=== PATIENT | female | born 1985 | race Caucasian/White ===

== ENCOUNTER 2023-11-30 12:19 | Emergency (ER) | payer OTHER, SELFPAY ==
[2023-11-30 12:31] VITALS: BP 108/81
[2023-11-30 14:00] LABS: COVID-19 Antigen Negative (Negative)
--- NOTE | 2023-11-30 14:03 | ED.GENMED ---
History of Present Illness
General
Chief Complaint: Eye Problems
Source: patient and spouse
Time Seen by Provider: 11/30/23 13:20
Travel History
Have you had any contact with someone who has COVID-19?: No
Do you have any symptoms of coronavirus? Fever > 100 degrees, chills, cough, shortness of breath, sore throat, loss of taste or smell, muscle aches, or headache?: No
History of Present Illness
History of Present Illness:
38-year-old female who presents with swelling and crusting of her left eye. Patient thought maybe it was related to allergies because she had a little bit of scratchy throat as well. Patient states today she had yellow and green stuff coming from
her left eye and now her eye is crusted shut. She does report swelling of her left upper lid. No kenneth fevers. No relief really with Zyrtec. No trouble breathing. No lip swelling. She denies itching of the eye
Past History
Past History
ED Past Medical History: None
Phy Exam
Physical Exam
Physical Exam:
CONSTITUTIONAL Patient alert and oriented to person, place and time. Well-appearing. Vital signs reviewed.
HEAD atraumatic, normocephalic.
EYES left upper lid is swollen with mild redness, crusting some exudative drainage. Sclera is injected on the left. Right eye is unaffected, Pupils equally round and reactive to light, Extraocular muscles intact. Fluorescein exam was performed
with no uptake. No abrasions or ulcers
ENT very mild posterior redness, no exudates
NECK normal range of motion, Trachea midline, no jugular venous distention.
ABDOMEN No distention.
BACK normal inspection, no obvious deformities
UPPER EXTREMITY range of motion normal, Motor strength normal, no cyanosis, no edema.
LOWER EXTREMITY range of motion normal, Motor strength normal, no cyanosis, no edema.
NEURO Speech normal, No focal motor deficits, Mastic coma scale 15, Memory normal, Cranial Nerves intact to screening exam.
SKIN skin warm, dry, and normal in color.
PSYCHIATRIC patient oriented to person place and time, Normal affect.
Course
Orders/Labs/Results
Orders:
Orders
11/30/23 13:41
COVID-19 Antigen Urgent
Source: Nasal Swab
Influenza A+B Rapid Molecular Urgent
MICHAEL Source: Nasal Swab
Specimen Description:
11/30/23 14:09
Doxycycline [Vibramycin] 100 mg PO NOW STA
Erythromycin (Ilotycin) [Erythromycin 0.5% Ophthalmic Ointment] See Dose Instructions OPHTH NOW STA
11/30/23 15:48
Fluorescein Sodium [Ful-Fanta] 1 mg .ROUTE .STK-MED ONE
Tetracaine HCl [Tetracaine 0.5% Ophthalmic Solution] 1 drop .ROUTE .STK-MED ONE
Vital Signs
Initial and Last Documented VS:
Initial Vital Signs
Temp Pulse Resp BP Pulse Ox
98.8 F 91 16 108/81 98
11/30/23 12:31 11/30/23 12:31 11/30/23 12:31 11/30/23 12:31 11/30/23 12:31
Last Documented Vital Signs
Temp Pulse Resp BP Pulse Ox
98.8 F 91 16 108/81 98
11/30/23 12:31 11/30/23 12:31 11/30/23 12:31 11/30/23 12:31 11/30/23 12:46
MDM/Problems Addressed
MDM/Problems Addressed:
Blepharitis, conjunctivitis
*Pulse Oximetry
Patient hypoxic: no
*Critical Care Note
Total Time (30-74mins, 75-104mins- exclusive of procedures): Not Applicable
Data Reviewed
Source: patient and spouse
Further Testing Considered But Not Given:
Consider orbital CT but do not suspect orbital cellulitis
Patient Management
Escalation/DeEscalation of care consider admission/obs:
Blepharitis/conjunctivitis. Suspect viral source Palladium lid swelling cover with oral antibiotics to prevent progression of preseptal cellulitis. Otherwise appears well. No corneal abrasion. Does not wear contacts. Recommended warm compresses
and gentle cleansing of the lids.
ED Attending Note
-
Portions of this chart may have been created with voice recognition software.� Occasional wrong word or��sound alike� substitutions may have occurred due to the inherent limitations of voice recognition software.
Discharge Plan
Departure
Patient Disposition: Home (Routine Discharge)
Date of Disposition: 11/30/23
Time of Disposition: 15:20
Patient with high blood pressure during this ER visit?: No
Discharge Problem:
Blepharitis, Preseptal cellulitis
Instructions: Conjunctivitis (Pinkeye) (DC), Cellulitis Around the Eye (DC)
Prescriptions:
New
doxycycline monohydrate 100 mg capsule
100 mg PO BID Qty: 14 0RF
erythromycin 5 mg/gram (0.5 %) ointment
0.5 inch ophthalmic (eye) QID 7 Days Qty: 3.5 0RF
No Action
vit-iron fum-folic ac 1 EACH tablet
1 ea PO DAILY
ibuprofen 600 MG tablet
600 mg PO Q4HPRN PRN (Reason: moderate pain/cramps) 0RF
Referrals:
Liliana Holcomb PA-C [Family Provider] -
Activity Restrictions/Additional Instructions:
Please apply warm compresses to your eye. You can wash your lids with a gentle wipe of warm water and soap. Please use antibiotic 4 times a day for 1 week. Return for vision changes, headache, eye pain, pain with movement of the eye, fevers or
any other concerns.
Interventions
Interventions:
*Risk Screen - Suicide Last Done: 11/30/23 15:44
*General Assessment Last Done: 11/30/23 15:44
*Neglect/Abuse Screening Last Done: 11/30/23 15:44
*ED COVID-19 Vaccine History Last Done: 11/30/23 12:31
*Nursing Disposition Last Done: 11/30/23 15:44
ED- Cardiac Assessment Last Done: 11/30/23 12:46
ED- Pulmonary Assessment Last Done: 11/30/23 12:46
ED-Skin Assessment Last Done: 11/30/23 12:46
Discharge Date and Time
Discharge Date/Time: 11/30/23 15:44
[2023-11-30] MEDS: VIBRAMYCIN 100 MG PO (14:32)
[2023-11-30] MEDS: ERYTHROMYCIN 0.5% OPHTHALMIC OINTMENT 1 APPLIC OPHTH (14:32)
== END 2023-11-30 15:44 | disposition home or self-care (01) ==
LOC: EMR 12:19
PROVIDERS: EMERGENCY PHYSICIAN Emergency Medicine; FAMILY PHYSICIAN Family Medicine
DX: H01.006 Unspecified blepharitis left eye, unspecified eyelid (principal); L03.213 Periorbital cellulitis; Z11.52 Encounter for screening for COVID-19
CPT/HCPCS: 99283; 87502; 87811

== ENCOUNTER 2023-12-22 05:27 | Emergency (ER) | payer OTHER, SELFPAY ==
[2023-12-22 05:30] VITALS: BP 93/58
--- NOTE | 2023-12-22 06:23 | ED.GENMED ---
History of Present Illness
General
Chief Complaint: Allergic Reaction
Source: patient and spouse
Exam Limitations: none
Time Seen by Provider: 12/22/23 06:22
Travel History
Have you had any contact with someone who has COVID-19?: No
Do you have any symptoms of coronavirus? Fever > 100 degrees, chills, cough, shortness of breath, sore throat, loss of taste or smell, muscle aches, or headache?: No
History of Present Illness
History of Present Illness:
38-year-old female woke in the middle of the night at about 3 AM with tongue swelling general hives and itching itchy gums. No chest pain or shortness of breath. Was given 2 Benadryl at home although she did vomit afterwards. Moderate improvement
with hives resolving most itching resolving except for her tongue still feels swollen and she is nauseous. No unusual food ingestion or exposure. No history of same
Past History
Past History
ED Past Medical History: None
Review of Systems
Review of Systems
All Other Systems: Not applicable
Constitutional: Denies fever
Cardiac: Denies chest pain
Phy Exam
Physical Exam
Physical Exam:
GENERAL: Alert and oriented in no apparent distress
EYE: Orbits normal.
NECK: Supple, no swelling
ENT: Pharynx without erythema. Questionable minimal tongue swelling but not appreciable. No drooling or stridor speech normal
CARDIAC: Regular rate and rhythm without any obvious murmurs.
LUNGS: Clear breath sounds,normal
ABDOMEN: Soft, without focal tenderness or distention
NEUROLOGICAL: Alert and oriented , grossly non-focal
SKIN: Warm and dry, no rash or lesion, no discoloration, skin intact. No hives
MUSCULOSKELETAL: No edema,no deformity.Good color
PSYCH: Normal and appropriate interaction.
Course
Orders/Labs/Results
Orders:
Orders
12/22/23 06:22
Cardiac Monitoring- Treatment ONCE
IV Insert/Care/Rem.- Treatment PRN
0.9% Sodium Chloride 1000 ml [Nss] 1,000 ml IV BOLUS
Dexamethasone Sod Phosphate [Decadron] 8 mg IV NOW STA
Diphenhydramine [Benadryl] 25 mg IV NOW STA
Famotidine [Pepcid] 20 mg IV NOW STA
Pulse Ox/cont/shift [RESP] Stat
Quantity: 1
12/22/23 06:23
Test Result ONCE
12/22/23 06:32
Basic Metabolic Panel Urgent
Beta Hcg Serum Qualitative Screen [HCG, Serum Qualitative Screen] Urgent
Complete Blood Count/With Diff Urgent
12/22/23 09:00
0.9% Sodium Chloride 1000 ml [Nss] 1,000 ml IV BOLUS
Abnormal Lab Results
12/22/23
06:32
WBC 15.1 H 10^3/uL
(4.8-10.8)
Abs Immat Gran (auto) 0.1 H 10^3/uL
(0-0.05)
Absolute Neuts (auto) 13.0 H 10^3/uL
(1.4-6.5)
Absolute Monos (auto) 0.8 H 10^3/uL
(0.1-0.6)
Neutrophils % 86.1 H %
(42.2-75.2)
Lymphocytes % 7.6 L %
(20.5-51.1)
Glucose 103 H mg/dl
(70-99)
12/22/23 06:32
12/22/23 06:32
Vital Signs
Initial and Last Documented VS:
Initial Vital Signs
Temp Pulse Resp BP Pulse Ox
98.1 F 102 24 93/58 99
12/22/23 05:30 12/22/23 05:30 12/22/23 05:30 12/22/23 05:30 12/22/23 05:30
Last Documented Vital Signs
Temp Pulse Resp BP Pulse Ox
98.1 F 74 16 92/57 97
12/22/23 05:30 12/22/23 09:00 12/22/23 09:00 12/22/23 09:00 12/22/23 09:00
MDM/Problems Addressed
Differential Diagnosis Includes:
At this time this appears to all be an allergic reaction to an unknown issue. Significantly improved after Benadryl at home. Will give H1 melissa, H2 melissa, steroids. Hold on epinephrine at this time.
*Critical Care Note
Total Time (30-74mins, 75-104mins- exclusive of procedures): Not Applicable
Update Note
Update Note:
0900... Patient updated multiple times. Currently feeling much better. No recurrent hives. Nausea is improved. Still feels like her tongue is swollen. Blood pressure is running 90/60 which patient is unsure what she normally runs. Will give a
second liter of fluid and continue observation
1130.... Patient been rechecked multiple times. She is doing well. Nausea has resolved. No recurrent hives. State her tongue swelling feels better. Clinically the tongue does not appear swollen. No airway issues. Leukocytosis is likely
reactionary as there is no clinical infectious issues. Blood pressure is minimally low although patient may run a low blood pressure given her age and size. She feels well enough to go home and will be discharged to follow-up
ED Attending Note
-
Portions of this chart may have been created with voice recognition software.� Occasional wrong word or��sound alike� substitutions may have occurred due to the inherent limitations of voice recognition software.
Discharge Plan
Departure
Patient Disposition: Home (Routine Discharge)
Date of Disposition: 12/22/23
Time of Disposition: 11:32
Patient with high blood pressure during this ER visit?: No
Discharge Problem:
Acute allergic reaction
Instructions: Allergic Reaction ED
Prescriptions:
New
prednisone 50 mg tablet
50 mg PO DAILY Qty: 5 0RF
No Action
multivitamin Tablet
1 tab PO DAILY
Referrals:
Liliana Holcomb PA-C [Family Provider] - Follow up in 2-3 days
Activity Restrictions/Additional Instructions:
As discussed, continue Benadryl and Pepcid for the next 3 to 4 days start the prednisone with any residual allergic symptoms tomorrow
Return immediately with progression of symptoms, any infectious symptoms shortness of breath increased tongue swelling etc.
Interventions
Interventions:
*Risk Screen - Suicide Last Done: 12/22/23 05:30
*General Assessment Last Done: 12/22/23 05:30
*Neglect/Abuse Screening Last Done: 12/22/23 06:33
ED- Fall Risk Assessment Last Done: 12/22/23 06:51
*ED COVID-19 Vaccine History Last Done: 12/22/23 06:33
ED- Cardiac Assessment Last Done: 12/22/23 06:51
ED- Pulmonary Assessment Last Done: 12/22/23 06:51
ED-Skin Assessment Last Done: 12/22/23 06:51
Discharge Date and Time
Print Language: [id number]
[2023-12-22 06:32] VITALS: BMI 31.8
[2023-12-22 06:37] VITALS: BP 90/61
[2023-12-22] MEDS: NSS 1000 IV ×2 (06:37→09:18)
[2023-12-22] MEDS: BENADRYL 25 MG IV (06:40)
[2023-12-22 06:43] LABS: % Basophils 0.1 % (0-2); % Eosinophils 0.3 % (0-6); % Immature Granulocytes 0.4 % (0-0.5); % Lymphocytes 7.6 % (20.5-51.1); % Monocytes 5.5 % (1.7-9.3); % Neutrophils 86.1 % (42.2-75.2); Absolute Eosinophils 0.1 10^3/uL (0-0.7); Absolute Immature Granulocytes 0.1 10^3/uL (0-0.05); Absolute Lymphocytes 1.2 10^3/uL (1.2-3.4); Absolute Monocytes 0.8 10^3/uL (0.1-0.6); Hematocrit 41.6 % (37.0-47.0); Hemoglobin 14.1 g/dL (12.0-16.0); Mean Corp Hgb Conc. 33.9 g/dL (33.0-37.0); Mean Corpuscular Hgb 28.3 pg (27.0-31.0); Mean Corpuscular Volume 83.4 fL (81.0-99.0); Mean Platelet Volume 10.1 fL (7.4-10.4); Nucleated Red Blood Cells % 0 %; Platelet Count 272 10^3/uL (130-400); Red Blood Cell Count 4.99 10^6/uL (4.20-5.40); Red Cell Dist. Width 12.5 % (11.5-14.5); White Blood Cell Count 15.1 10^3/uL (4.8-10.8)
[2023-12-22] MEDS: PEPCID 20 MG IV (06:43)
[2023-12-22] MEDS: DECADRON 8 MG IV (06:46)
[2023-12-22 06:53] LABS: HCG, Serum Qualitative Screen Negative
[2023-12-22 06:56] LABS: Blood Urea Nitrogen 12 mg/dl (7-17); Calcium 9.4 mg/dl (8.4-10.2); Chloride 105 mmol/L (98-107); Estimated Creatinine Clearance 84 ml/min; Glucose 103 mg/dl (70-99); Potassium 3.7 mmol/L (3.5-5.1); Sodium 137 mmol/L (135-145); eGFR > 60.00
[2023-12-22 07:06] LABS: Carbon Dioxide 24 mmol/L (22-30)
[2023-12-22 09:00] VITALS: BP 92/57
== END 2023-12-22 11:52 | disposition home or self-care (01) ==
LOC: EMR 05:27
PROVIDERS: EMERGENCY PHYSICIAN Emergency Medicine; FAMILY PHYSICIAN Family Medicine
DX: T78.40XA Allergy, unspecified, initial encounter (principal); R22.0 Localized swelling, mass and lump, head; L50.0 Allergic urticaria; R11.2 Nausea with vomiting, unspecified
CPT/HCPCS: 99284; 96374; 96375 ×2; 96361 ×2; 80048; 84703; 85025